=== PATIENT | female | born 1975 | race Caucasian/White ===

== ENCOUNTER → 2025-07-28 | Outpatient (CLI) | payer BC, SELFPAY ==
[2025-07-28 18:41] LABS: AST(SGOT) 30 U/L (<=31); Alanine Aminotransfer ALT/SGPT 34 U/L (<=34); Albumin, Serum 4.7 g/dL (3.5-5.0); Alkaline Phosphatase 73 U/L (35-104); Anion Gap 13 (5-15); BUN 13 mg/dL (4-19); BUN/Creat Ratio 12.2 RATIO (10-20); Calcium,Total 9.9 mg/dL (7.6-11.0); Carbon Dioxide 23.6 mmol/L (21.0-32.0); Chloride 104 mmol/L (98-108); Ferritin 55 ng/mL (22-378); Globulin 2.6 g/dL (2.2-4.2); Glucose 94 mg/dL (70-99); Hepatitis C Antibody Nonreactive (Nonreactive); Potassium 4.1 mmol/L (3.3-5.1)
[2025-07-28 18:43] LABS: CRP < 3.00 mg/L (0.0-3.0)
[2025-07-30 13:08] LABS: ANTINUCLEAR ANTIBODIES DIRECT Negative (Negative)
[2025-08-03 18:08] LABS: Anti-Parietal Cell AB, QN 5.0 Units (0.0-20.0); Anti-Smooth Muscle ABS 8 Units (0-19); Immunoglobulin A 143 mg/dL (87-352)
== END | disposition home or self-care (01) ==
LOC: MTLAB 16:55
PROVIDERS: PCP Nurse Practitioner Family; Referring Provider Internal Medicine Gastroenterology; Visit Provider Internal Medicine Gastroenterology
DX: K75.9 Inflammatory liver disease, unspecified (principal); E53.9 Vitamin B deficiency, unspecified
CPT/HCPCS: 36415; 80053; 82728; 82784; 83516; 86038; 86140; 86255; 86340; 86803